=== PATIENT | male | born 1955 | race Caucasian/White ===

== ENCOUNTER 2018-04-24 14:25 | Inpatient (IN) | payer OTHER ==
[~2018-04-24] VITALS: Ht 170.2 cm; Wt 71.9 kg
[2018-04-24 15:07] LABS: BASOPHILS # (AUTO) 0.01 x10^3/uL (0-0.1); BASOPHILS % (AUTO) 0 % (0-1); EOSINOPHILS # (AUTO) 0.03 x10^3/uL (0-0.4); EOSINOPHILS % (AUTO) 0 % (1-7); LYMPHOCYTES # (AUTO) 1.09 x10^3/uL (1-3.4); LYMPHOCYTES % (AUTO) 9 % (22-44); MD NO; MEAN CORPUSCULAR HEMOGLOBIN 31.5 pg (27.5-34.5); MEAN CORPUSCULAR HGB CONC 34.2 g/dL (33.2-36.2); MEAN CORPUSCULAR VOLUME 92.2 fL (81-97); MEAN PLATELET VOLUME 8.6 fL (7.4-10.4); MONOCYTES # (AUTO) 0.77 x10^3/uL (0.2-0.8); MONOCYTES % (AUTO) 6 % (2-9); NEUTROPHILS # (AUTO) 10.74 x10^3/uL (1.8-6.8); NEUTROPHILS % (AUTO) 85 % (42-75); PLATELET COUNT 245 x10^3/uL (130-400); RED BLOOD COUNT 3.78 x10^6/uL (4.38-5.82); RED CELL DISTRIBUTION WIDTH 13.2 % (9.4-14.8)
[2018-04-24 15:09] LABS: ALBUMIN 3.2 g/dL (3.4-5.0); ANION GAP 11 mmol/L (5-15); CALCIUM 8.1 mg/dL (8.5-10.1); CHLORIDE 97 mmol/L (98-107); CREATININE 2.15 mg/dL (0.7-1.3)
[2018-04-24 15:12] LABS: TROPONIN I 0.029 ng/mL (0.000-0.045)
[2018-04-24] MEDS ORDERED: SPIR25TA5 PO (15:30)
[2018-04-24] MEDS ORDERED: WARF1TAB PO (15:30)
[2018-04-24] MEDS ORDERED: PANT40TA5 PO (15:30)
[2018-04-24] MEDS ORDERED: LISI2.5T PO (15:30)
[2018-04-24] MEDS ORDERED: FURO-92 PO (15:30)
[2018-04-24] MEDS ORDERED: CARV3.122 PO (15:30)
[2018-04-24] MEDS ORDERED: ATOR40TA PO (15:30)
[2018-04-24 15:39] LABS: INTERNATIONAL NORMALIZED RATIO 2.22 (0.93-1.1); PROTHROMBIN TIME 22.8 Seconds (9.6-11.5)
[2018-04-24] MEDS ORDERED: SODIUM CHLORIDE FLUSH 10ML SYR IVF ONE (16:00)
[2018-04-24] MEDS ORDERED: SODIUM CHLORIDE 0.9% 1,000ML IVBOLUS ONE ×2 (16:00→17:00)
[2018-04-24] MEDS ORDERED: NOREPINEPHRINE 4 MG in SODIUM CHLORIDE 0.9% 246 ML IV PRN ×2 (16:30→17:30)
[2018-04-24] MEDS: SODIUM CHLORIDE 0.9% 1,000 ML IV SCH ×2 (16:50→20:16)
[2018-04-24] MEDS ORDERED: ACETAMINOPHEN 325 MG TABLET PO PRN (17:00)
[2018-04-24] MEDS ORDERED: ONDANSETRON ODT 4 MG PO PRN (17:00)
[2018-04-24] MEDS ORDERED: ONDANSETRON 2MG/ML, 2ML IVPush PRN (17:00)
[2018-04-24] MEDS ORDERED: BISACODYL 10 MG SUPP PR PRN (17:00)
[2018-04-24] MEDS ORDERED: POLYETHYLENE GLYCOL 17 GM PACKET PO PRN (17:00)
[2018-04-24 17:55] LABS: TROPONIN I 0.032 ng/mL (0.000-0.045)
[2018-04-24] MEDS ORDERED: WARFARIN 7.5 MG TABLET PO-COUM SCH (19:09)
[2018-04-24] MEDS: CEFTRIAXONE PMX 1GM/50ML 50 ML IV SCH (20:49)
[2018-04-24] MEDS: ATORVASTATIN 40 MG TABLET PO SCH (21:06)
[2018-04-24 23:54] LABS: TROPONIN I 0.035 ng/mL (0.000-0.045)
[2018-04-25 05:09] LABS: INTERNATIONAL NORMALIZED RATIO 2.28 (0.93-1.1); PROTHROMBIN TIME 23.4 Seconds (9.6-11.5)
[2018-04-25 05:16] LABS: CHLORIDE 107 mmol/L (98-107)
[2018-04-25 05:17] LABS: BASOPHILS # (AUTO) 0.04 x10^3/uL (0-0.1); BASOPHILS % (AUTO) 0 % (0-1); EOSINOPHILS # (AUTO) 0.21 x10^3/uL (0-0.4); EOSINOPHILS % (AUTO) 2 % (1-7); LYMPHOCYTES # (AUTO) 2.89 x10^3/uL (1-3.4); LYMPHOCYTES % (AUTO) 22 % (22-44); MD NO; MEAN CORPUSCULAR HEMOGLOBIN 32.1 pg (27.5-34.5); MEAN CORPUSCULAR HGB CONC 34.7 g/dL (33.2-36.2); MEAN CORPUSCULAR VOLUME 92.4 fL (81-97); MEAN PLATELET VOLUME 9.1 fL (7.4-10.4); MONOCYTES # (AUTO) 0.95 x10^3/uL (0.2-0.8); MONOCYTES % (AUTO) 7 % (2-9); NEUTROPHILS % (AUTO) 69 % (42-75); PLATELET COUNT 225 x10^3/uL (130-400); RED CELL DISTRIBUTION WIDTH 13.4 % (9.4-14.8)
[2018-04-25 05:22] LABS: ALANINE AMINOTRANSFERASE 32 U/L (12-78); ALKALINE PHOSPHATASE 99 U/L (45-117); ANION GAP 7 mmol/L (5-15); BILIRUBIN,TOTAL 0.2 mg/dL (0.2-1.0); CALCIUM 8.1 mg/dL (8.5-10.1); CREATININE 1.03 mg/dL (0.7-1.3)
[2018-04-25] MEDS: SENNA/DOCUSATE TABLET PO SCH ×2 (09:00→09:25)
[2018-04-25 15:26] LABS: MICROSCOPIC NOT IND
[2018-04-25 15:30] LABS: CULTURE INDICATED? NO
[2018-04-25] MEDS: ATORVASTATIN 40 MG TABLET PO SCH (21:20)
[2018-04-25] MEDS: CEFTRIAXONE PMX 1GM/50ML 50 ML IV SCH (21:21)
[2018-04-25] MEDS: NICOTINE 14MG/24 HR PATCH.TD24 TD SCH (22:39)
[2018-04-26 05:17] LABS: BASOPHILS # (AUTO) 0.05 x10^3/uL (0-0.1); BASOPHILS % (AUTO) 0 % (0-1); EOSINOPHILS # (AUTO) 0.32 x10^3/uL (0-0.4); EOSINOPHILS % (AUTO) 3 % (1-7); LYMPHOCYTES # (AUTO) 2.26 x10^3/uL (1-3.4); LYMPHOCYTES % (AUTO) 21 % (22-44); MD NO; MEAN CORPUSCULAR HEMOGLOBIN 31.1 pg (27.5-34.5); MEAN CORPUSCULAR HGB CONC 33.5 g/dL (33.2-36.2); MEAN CORPUSCULAR VOLUME 92.9 fL (81-97); MEAN PLATELET VOLUME 8.9 fL (7.4-10.4); MONOCYTES # (AUTO) 0.76 x10^3/uL (0.2-0.8); MONOCYTES % (AUTO) 7 % (2-9); NEUTROPHILS # (AUTO) 7.51 x10^3/uL (1.8-6.8); NEUTROPHILS % (AUTO) 69 % (42-75); PLATELET COUNT 225 x10^3/uL (130-400); RED BLOOD COUNT 3.39 x10^6/uL (4.38-5.82); RED CELL DISTRIBUTION WIDTH 13.6 % (9.4-14.8)
[2018-04-26] MEDS: SENNA/DOCUSATE TABLET PO SCH (08:18)
[2018-04-26] MEDS: ATORVASTATIN 40 MG TABLET PO SCH (20:15)
[2018-04-26 20:22] VITALS: BP 102/60
[2018-04-26] MEDS: NICOTINE 14MG/24 HR PATCH.TD24 TD SCH (22:27)
[2018-04-27] MEDS: SENNA/DOCUSATE TABLET PO SCH (09:00)
[2018-04-27 11:17] VITALS: BP 131/80
[2018-04-27 12:03] LABS: BASOPHILS # (AUTO) 0.07 x10^3/uL (0-0.1); BASOPHILS % (AUTO) 1 % (0-1); EOSINOPHILS # (AUTO) 0.11 x10^3/uL (0-0.4); EOSINOPHILS % (AUTO) 1 % (1-7); LYMPHOCYTES # (AUTO) 1.78 x10^3/uL (1-3.4); LYMPHOCYTES % (AUTO) 17 % (22-44); MD NO; MEAN CORPUSCULAR HEMOGLOBIN 32.1 pg (27.5-34.5); MEAN CORPUSCULAR HGB CONC 34.6 g/dL (33.2-36.2); MEAN CORPUSCULAR VOLUME 92.8 fL (81-97); MEAN PLATELET VOLUME 8.2 fL (7.4-10.4); MONOCYTES % (AUTO) 6 % (2-9); NEUTROPHILS # (AUTO) 8.14 x10^3/uL (1.8-6.8); NEUTROPHILS % (AUTO) 75 % (42-75); PLATELET COUNT 243 x10^3/uL (130-400); RED BLOOD COUNT 3.48 x10^6/uL (4.38-5.82); RED CELL DISTRIBUTION WIDTH 13.4 % (9.4-14.8)
[2018-04-27 12:12] LABS: ANION GAP 9 mmol/L (5-15); CALCIUM 8.6 mg/dL (8.5-10.1); CHLORIDE 105 mmol/L (98-107); CREATININE 0.78 mg/dL (0.7-1.3)
[2018-04-27 17:09] VITALS: BP 129/79
[2018-04-27 20:05] VITALS: BP 127/84
[2018-04-27] MEDS: NICOTINE 14MG/24 HR PATCH.TD24 TD SCH (20:31)
[2018-04-27] MEDS: ATORVASTATIN 40 MG TABLET PO SCH (20:31)
[2018-04-28] VITALS (7 sets, daily range): BP systolic 107–144; BP diastolic 62–87
[2018-04-28 05:03] LABS: BASOPHILS # (AUTO) 0.05 x10^3/uL (0-0.1); BASOPHILS % (AUTO) 0 % (0-1); EOSINOPHILS % (AUTO) 2 % (1-7); LYMPHOCYTES # (AUTO) 2.12 x10^3/uL (1-3.4); LYMPHOCYTES % (AUTO) 17 % (22-44); MD NO; MEAN CORPUSCULAR HEMOGLOBIN 32.2 pg (27.5-34.5); MEAN CORPUSCULAR VOLUME 91.9 fL (81-97); MEAN PLATELET VOLUME 8.1 fL (7.4-10.4); MONOCYTES # (AUTO) 0.77 x10^3/uL (0.2-0.8); MONOCYTES % (AUTO) 6 % (2-9); NEUTROPHILS # (AUTO) 9.24 x10^3/uL (1.8-6.8); NEUTROPHILS % (AUTO) 75 % (42-75); PLATELET COUNT 249 x10^3/uL (130-400); RED BLOOD COUNT 3.61 x10^6/uL (4.38-5.82); RED CELL DISTRIBUTION WIDTH 13.4 % (9.4-14.8)
[2018-04-28 05:12] LABS: ANION GAP 6 mmol/L (5-15); CALCIUM 8.9 mg/dL (8.5-10.1); CHLORIDE 107 mmol/L (98-107)
[2018-04-28 05:13] LABS: CREATININE 0.92 mg/dL (0.7-1.3)
[2018-04-28] MEDS ORDERED: SODIUM CHLORIDE 0.9% 1,000 ML IV SCH (09:00)
[2018-04-28] MEDS: SENNA/DOCUSATE TABLET PO SCH (09:00)
[2018-04-28] MEDS ORDERED: METOPROLOL TARTRATE 25 MG TABLET ONE (12:49)
[2018-04-28] MEDS: NICOTINE 21 MG/24 HR PATCH.TD24 TD SCH (12:50)
[2018-04-28] MEDS: METOPROLOL TARTRATE 25 MG TABLET PO SCH (13:03)
[2018-04-28] MEDS: ATORVASTATIN 40 MG TABLET PO SCH (21:43)
[2018-04-29 01:53] VITALS: BP 110/61
[2018-04-29 05:41] VITALS: BP 102/63
[2018-04-29] MEDS: METOPROLOL TARTRATE 25 MG TABLET PO SCH (05:48)
[2018-04-29 07:14] VITALS: BP 97/62
[2018-04-29] MEDS ORDERED: REGADENOSON 0.4 MG/5 ML SYRINGE ONE (08:48)
[2018-04-29] MEDS: SENNA/DOCUSATE TABLET PO SCH (09:00)
[2018-04-29 11:25] VITALS: BP 122/73
[2018-04-29] MEDS: NICOTINE 21 MG/24 HR PATCH.TD24 TD SCH (12:30)
[2018-04-29] MEDS ORDERED: METO25TA91 PO (13:00)
[2018-04-29] MEDS ORDERED: ASPI-515 PO (13:00)
== END 2018-04-29 14:54 | disposition home or self-care (01) | DRG 64 ==
LOC: ED 16:54 → EDIP 16:55 → ED 17:22 → CCU 19:06 → 4EST 04-27 11:07
PROVIDERS: ADMIT Family Medicine; ATTEND Family Medicine
PROC: 02HV33Z Insertion of Infusion Device into Superior Vena Cava, Percutaneous Approach (ICD-10-PCS; principal; 2018-04-24)
PROC: B548ZZA Ultrasonography of Superior Vena Cava, Guidance (ICD-10-PCS; 2018-04-24)
DX: I61.9 Nontraumatic intracerebral hemorrhage, unspecified (principal); N17.0 Acute kidney failure with tubular necrosis; E87.1 Hypo-osmolality and hyponatremia; D68.69 Other thrombophilia; I47.2 Ventricular tachycardia; I95.2 Hypotension due to drugs; I48.91 Unspecified atrial fibrillation; D64.9 Anemia, unspecified; D72.828 Other elevated white blood cell count; E78.5 Hyperlipidemia, unspecified; F41.9 Anxiety disorder, unspecified; I10 Essential (primary) hypertension; I25.10 Atherosclerotic heart disease of native coronary artery without angina pectoris; I51.3 Intracardiac thrombosis, not elsewhere classified; Z79.01 Long term (current) use of anticoagulants; Z82.49 Family history of ischemic heart disease and other diseases of the circulatory system; Z87.891 Personal history of nicotine dependence; W18.39XA Other fall on same level, initial encounter; Y93.89 Activity, other specified; Y92.89 Other specified places as the place of occurrence of the external cause; Y99.8 Other external cause status
CPT/HCPCS: 36415; 70450; 71045; 78452; 80048; 80053; 81003; 82040; 82533; 83735; 84100; 84443; 84484; 85025; 85610; 85730; 87040; 87081; 93005; 93017; 93306; 96361; 96374; 99291; G0378; J0696; J2785; A9502; C9898; J7030; J7050